=== PATIENT | female | born 1960 ===

== ENCOUNTER 2022-08-26 11:30 | Inpatient (IN) | payer BC ==
[~2022-08-26] VITALS: Ht 154.9 cm; Wt 62.1 kg
[2022-08-26] MEDS ORDERED: TRANDOLAPRIL2 MG PO (15:08)
[2022-08-26] MEDS ORDERED: TINACTIN150 GM (15:08)
[2022-08-26] MEDS ORDERED: BIOTIN1 MG PO (15:08)
== END 2022-09-02 12:44 | disposition home or self-care (01) | DRG 330 ==
LOC: O/R 08-31 05:50 → SURG 08-31 08:00
PROVIDERS: ADMIT Colon & Rectal Surgery; ATTEND Colon & Rectal Surgery
PROC: 0DBP4ZZ Excision of Rectum, Percutaneous Endoscopic Approach (ICD-10-PCS; 2022-08-31)
PROC: 0DTN4ZZ Resection of Sigmoid Colon, Percutaneous Endoscopic Approach (ICD-10-PCS; principal; 2022-08-31 08:00)
PROC: 4A12X4Z Monitoring of Cardiac Electrical Activity, External Approach (ICD-10-PCS; 2022-09-01)
DX: K92.1 Melena (principal); K57.32 Diverticulitis of large intestine without perforation or abscess without bleeding; N73.6 Female pelvic peritoneal adhesions (postinfective); I10 Essential (primary) hypertension; Z20.822 Contact with and (suspected) exposure to COVID-19